=== PATIENT | male | born 1995 | race African-American/Black ===

== ENCOUNTER 2019-06-05 11:13 | Inpatient (IN) | payer MEDICAID, OTHER ==
[2019-06-05] VITALS (9 sets, daily range): BP systolic 148–191; BP diastolic 92–120
[~2019-06-05] VITALS: Ht 152.4 cm; Wt 67.9 kg
[2019-06-05] MEDS ORDERED: DEXTROSE (50%) 50ML SYRG IV PRN (11:30)
[2019-06-05] MEDS: SODIUM CHLORIDE 0.9% 1,000 ML IV SCH ×2 (11:58→13:35)
[2019-06-05] MEDS ORDERED: LORazepam 2MG/ML-1ML VIAL IV ONE (12:00)
[2019-06-05 12:24] LABS: Basophils # (auto) 0 uL; Basophils % (auto) 0.4 % (0.0-2.0); Eosinophils # (auto) 0 uL; Eosinophils % (auto) 0.1 % (0.0-7.0); Hemoglobin 13.3 g/dL (13.5-17.5); Lymphocytes # (auto) 1.2 uL; Lymphocytes % (auto) 12.4 % (10.0-50.0); Mean Corpuscular Hemoglobin 30.5 pg (28.0-32.0); Mean Corpuscular Hgb Conc. 32.4 g/dL (32.0-36.0); Mean Corpuscular Volume 94.1 fL (80.0-100.0); Monocytes # (auto) 0.3 uL; Monocytes % (auto) 2.8 % (0.0-12.0); Neutrophils # (auto) 8.4 uL; Neutrophils % (auto) 84.3 % (37.0-80.0); Nucleated Red Blood Cells % 0.1 %; Platelet Count (auto) 285 10^3/uL (140-450); Red Blood Cells 4.36 10^6/uL (4.5-5.90); Red Cell Distribution Width 14.3 % (11.8-14.3)
[2019-06-05 12:52] LABS: Calcium 9.8 mg/dL (8.5-10.1); Magnesium 2.8 mg/dL (1.6-2.6); Potassium 4.5 mmol/L (3.5-5.1)
[2019-06-05 13:00] LABS: BUN/Creatinine Ratio 14.9; Phosphorus 7.4 mg/dL (2.5-4.90)
[2019-06-05] MEDS: ACCU-CHEK COMFORT CURVE STRIP VI SCH ×8 (13:11→22:41)
[2019-06-05] MEDS ORDERED: NITROGLYCERIN 0.4 MG SL TAB SL PRN (13:15)
[2019-06-05] MEDS ORDERED: ONDANSETRON HCL 4 MG/2 ML VIAL IV PRN (13:15)
[2019-06-05] MEDS ORDERED: LABETALOL HCL 5 MG/ML 4ML SYRINGE IV PRN (13:15)
[2019-06-05] MEDS ORDERED: MORPHINE SULF INJ 2 MG/ML SYRINGE 1ML IV PRN ×2 (13:15)
[2019-06-05] MEDS: InsuLIN R (HUMAN) 100 UNITS in SODIUM CHL 0.9% 99 ML IV SCH (13:16)
[2019-06-05 13:33] LABS: Urine Bacteria FEW /hpf (None Seen); Urine Blood 1+ /uL (Negative); Urine Specific Gravity 1.017 (1.001-1.035); Urine WBC 1 /hpf (0 - 3)
[2019-06-05 13:52] LABS: Alcohol, Urine < 3.0 mg/dL (0-5); Amphetamine Screen, Urine NEGATIVE (NEGATIVE); Barbiturate Scree,Urine NEGATIVE (NEGATIVE); Benzodiazephine Screen, Urine NEGATIVE (NEGATIVE); Cannabinoid Screen, Urine POSITIVE (NEGATIVE); Cocaine Screen, Urine NEGATIVE (NEGATIVE); Opiate Scree,Urine NEGATIVE (NEGATIVE); Phencyclidine Screen, Urine NEGATIVE (NEGATIVE)
[2019-06-05] MEDS ORDERED: LABETALOL HCL 5 MG/ML ML 20ML VIAL IV PRN (14:00)
[2019-06-05] MEDS ORDERED: SODIUM CHLORIDE 0.9% 1,000 ML IV SCH ×2 (15:18→17:18)
[2019-06-05] MEDS ORDERED: ACETAMINOPHEN 650 MG RECT SUPP PR ONE ×3 (16:30→23:15)
[2019-06-05 18:17] LABS: BUN/Creatinine Ratio 10.8; Calcium 9.1 mg/dL (8.5-10.1); Potassium 3.3 mmol/L (3.5-5.1)
[2019-06-05] MEDS ORDERED: POTASSIUM CHLORIDE 40 MEQ, LIDOCAINE 1% (LOCAL ANESTH.) 4 ML in SODIUM CHL 0.9% 100 ML IV ONE (19:00)
[2019-06-05] MEDS: SOD CHL 0.45% 1,000 ML IV SCH (19:37)
[2019-06-05] MEDS ORDERED: LORazepam 2MG/ML-1ML VIAL ONE (20:19)
[2019-06-05] MEDS: FAMOTIDINE (10MG/ML) 2ML VL IV SCH (22:55)
[2019-06-06] VITALS (82 sets, daily range): BP systolic 110–162; BP diastolic 49–93
[2019-06-06] MEDS ORDERED: SODIUM CHLORIDE 0.9% 500 ML IV ONE
[2019-06-06] MEDS: ACCU-CHEK COMFORT CURVE STRIP VI SCH ×13 (00:13→19:52)
[2019-06-06 01:42] LABS: Lactic Acid w/Reflex 2.7 mmol/L (0.4-2.0)
[2019-06-06] MEDS: SOD CHL 0.45% 1,000 ML IV SCH ×3 (04:00→15:46)
[2019-06-06 04:32] LABS: Calcium 8.4 mg/dL (8.5-10.1); Magnesium 1.9 mg/dL (1.6-2.6); Phosphorus 2.1 mg/dL (2.5-4.90); Potassium 3.7 mmol/L (3.5-5.1)
[2019-06-06] MEDS: FAMOTIDINE (10MG/ML) 2ML VL IV SCH ×2 (10:09→21:31)
[2019-06-06] MEDS: levoFLOXacin 500MG 100 ML IV SCH ×2 (10:09)
[2019-06-06] MEDS: InsuLIN R (HUMAN) 100 UNITS in SODIUM CHL 0.9% 99 ML IV SCH (12:01)
[2019-06-06 14:38] LABS: BUN/Creatinine Ratio 14.3; Potassium 3.4 mmol/L (3.5-5.1)
[2019-06-06] MEDS ORDERED: PIPERACILLIN-TAZOB 3.375GM 100 ML IV ONE (14:45)
[2019-06-06] MEDS ORDERED: INSULIN LANTUS (GLARGINE) 1 /0.01ml (100units/ml) SC ONE ×2 (15:30→15:40)
[2019-06-06] MEDS ORDERED: DEXTROSE (50%) 50ML SYRG IV PRN (15:30)
[2019-06-06] MEDS: InsuLIN REG 1unit/0.01ml Soln (100units/ml) SC SCH ×2 (15:53→19:52)
[2019-06-06] MEDS: hydrALAZINE HCL 20 MG/ML VL IV PRN (15:55)
[2019-06-06] MEDS: METOPROLOL TARTRATE 1MG/1ML-5ML VIAL IV SCH (17:40)
[2019-06-06] MEDS: PIPERACILLIN-TAZOB 3.375GM 100 ML IV SCH (21:31)
[2019-06-06] MEDS: INSULIN LANTUS (GLARGINE) 1 /0.01ml (100units/ml) SC SCH (21:31)
[2019-06-06] MEDS ORDERED: INSULIN LANTUS (GLARGINE) 1 /0.01ml (100units/ml) SC SCH (22:00)
[2019-06-07] MEDS: ACCU-CHEK COMFORT CURVE STRIP VI SCH ×6 (00:11→22:00)
[2019-06-07] MEDS: METOPROLOL TARTRATE 1MG/1ML-5ML VIAL IV SCH ×2 (00:11→06:20)
[2019-06-07] MEDS: SOD CHL 0.45% 1,000 ML IV SCH (00:12)
[2019-06-07] MEDS: PIPERACILLIN-TAZOB 3.375GM 100 ML IV SCH ×4 (03:15→21:24)
[2019-06-07] MEDS: InsuLIN REG 1unit/0.01ml Soln (100units/ml) SC SCH ×6 (04:00→22:00)
[2019-06-07 05:37] VITALS: BP 147/97
[2019-06-07 09:00] VITALS: BP 160/98
[2019-06-07] MEDS: hydrALAZINE HCL 20 MG/ML VL IV PRN (09:18)
[2019-06-07] MEDS: FAMOTIDINE (10MG/ML) 2ML VL IV SCH (09:18)
[2019-06-07] MEDS ORDERED: DEXTROSE (50%) 50ML SYRG IV PRN (10:45)
[2019-06-07 10:52] LABS: Basophils # (auto) 0.1 uL; Basophils % (auto) 0.9 % (0.0-2.0); Eosinophils # (auto) 0.1 uL; Eosinophils % (auto) 0.5 % (0.0-7.0); Hematocrit 36.9 % (41.0-53.0); Hemoglobin 12.3 g/dL (13.5-17.5); Lymphocytes # (auto) 1.7 uL; Lymphocytes % (auto) 15.8 % (10.0-50.0); Mean Corpuscular Hemoglobin 30.7 pg (28.0-32.0); Mean Corpuscular Hgb Conc. 33.4 g/dL (32.0-36.0); Monocytes % (auto) 9.6 % (0.0-12.0); Neutrophils # (auto) 7.9 uL; Neutrophils % (auto) 73.2 % (37.0-80.0); Nucleated Red Blood Cells % 0.1 %; Platelet Count (auto) 249 10^3/uL (140-450); Red Blood Cells 4.01 10^6/uL (4.5-5.90); Red Cell Distribution Width 14.5 % (11.8-14.3); White Blood Cell 10.7 10^3/uL (4.4-10.8)
[2019-06-07] MEDS ORDERED: POM SC (10:53)
[2019-06-07] MEDS ORDERED: INSLANTI SC (10:53)
[2019-06-07] MEDS ORDERED: METOPROLOL TARTRATE 25 MG TAB PO ONE (11:00)
[2019-06-07 11:08] LABS: Albumin 2.4 g/dL (3.4-5.0); Calcium 8.4 mg/dL (8.5-10.1); Magnesium 1.8 mg/dL (1.6-2.6); Potassium 3.1 mmol/L (3.5-5.1)
[2019-06-07 11:14] LABS: BUN/Creatinine Ratio 8.2; Bilirubin, Total 1.3 mg/dL (0.2-1.0); Total Protein 6.5 g/dL (6.4-8.2)
[2019-06-07] MEDS ORDERED: LISINOPRIL 10 MG TAB PO ONE (11:30)
[2019-06-07] MEDS ORDERED: SOD CHL 0.45% 1,000 ML IV SCH (11:30)
[2019-06-07] MEDS ORDERED: POTASSIUM CHL 20 Meq TABLET PO ONE (12:00)
[2019-06-07] MEDS ORDERED: MAGNESIUM SULFATE 1GM/100ML 100 ML IV ONE (12:00)
[2019-06-07] MEDS ORDERED: SODIUM CHLORIDE 0.9% 1,000 ML IV SCH (12:00)
[2019-06-07 12:26] LABS: Urine Bacteria NONE SEEN /hpf (None Seen); Urine Blood 2+ /uL (Negative); Urine WBC 13 /hpf (0 - 3)
[2019-06-07 12:44] VITALS: BP 137/99
[2019-06-07 17:00] VITALS: BP 132/79
[2019-06-07 21:45] VITALS: BP 161/112
[2019-06-07] MEDS: METOPROLOL TARTRATE 25 MG TAB PO SCH (21:59)
[2019-06-07] MEDS: INSULIN LANTUS (GLARGINE) 1 /0.01ml (100units/ml) SC SCH (22:00)
[2019-06-08] MEDS: PIPERACILLIN-TAZOB 3.375GM 100 ML IV SCH ×5 (04:21→20:59)
[2019-06-08 05:32] VITALS: BP 128/73
[2019-06-08] MEDS ORDERED: LISI-275 PO (05:36)
[2019-06-08] MEDS ORDERED: CHOL20007 PO (05:36)
[2019-06-08] MEDS: ACCU-CHEK COMFORT CURVE STRIP VI SCH ×4 (06:24→22:02)
[2019-06-08] MEDS: InsuLIN REG 1unit/0.01ml Soln (100units/ml) SC SCH ×4 (06:25→22:08)
[2019-06-08 06:44] LABS: Albumin 2.1 g/dL (3.4-5.0); Magnesium 2.2 mg/dL (1.6-2.6)
[2019-06-08 06:57] LABS: Bilirubin, Total 0.6 mg/dL (0.2-1.0); Total Protein 5.9 g/dL (6.4-8.2)
[2019-06-08 07:00] LABS: Potassium 2.9 mmol/L (3.5-5.1)
[2019-06-08 07:13] LABS: Bilirubin, Direct 0.2 mg/dL (0-0.2)
[2019-06-08] MEDS ORDERED: POTASSIUM CHL 20 Meq TABLET PO ONE ×2 (08:00→10:15)
[2019-06-08 08:32] VITALS: BP 144/84
[2019-06-08] MEDS: METOPROLOL TARTRATE 25 MG TAB PO SCH ×2 (10:51→22:08)
[2019-06-08] MEDS: LISINOPRIL 10 MG TAB PO SCH (10:52)
[2019-06-08] MEDS: FAMOTIDINE 20 MG TAB PO SCH (10:52)
[2019-06-08 13:27] VITALS: BP 151/112
[2019-06-08 16:41] VITALS: BP 135/87
[2019-06-08 22:00] VITALS: BP 168/134
[2019-06-08] MEDS ORDERED: INSULIN LANTUS (GLARGINE) 1 /0.01ml (100units/ml) SC SCH (22:00)
[2019-06-09] MEDS: PIPERACILLIN-TAZOB 3.375GM 100 ML IV SCH ×2 (03:18→09:13)
[2019-06-09 05:00] VITALS: BP 190/119
[2019-06-09 05:30] LABS: Calcium 8.6 mg/dL (8.5-10.1); Magnesium 2.6 mg/dL (1.6-2.6); Potassium 3.2 mmol/L (3.5-5.1)
[2019-06-09] MEDS: ACCU-CHEK COMFORT CURVE STRIP VI SCH ×2 (05:50→11:30)
[2019-06-09] MEDS: InsuLIN REG 1unit/0.01ml Soln (100units/ml) SC SCH ×2 (05:50→11:30)
[2019-06-09 09:00] VITALS: BP 156/120
[2019-06-09] MEDS: LISINOPRIL 10 MG TAB PO SCH (09:13)
[2019-06-09] MEDS: FAMOTIDINE 20 MG TAB PO SCH (09:14)
[2019-06-09] MEDS: METOPROLOL TARTRATE 25 MG TAB PO SCH (09:14)
[2019-06-09] MEDS ORDERED: LISINOPRIL 20 MG TAB PO ONE (11:30)
[2019-06-09] MEDS ORDERED: METOPROLOL TARTRATE 25 MG TAB PO ONE (11:30)
[2019-06-09] MEDS ORDERED: levoFLOXacin 250 MG TAB PO ONE (12:30)
[2019-06-09] MEDS ORDERED: POTASSIUM CHL 20 Meq TABLET PO ONE (12:30)
[2019-06-09 13:00] VITALS: BP 200/125
[2019-06-09] MEDS: hydrALAZINE HCL 20 MG/ML VL IV PRN (13:17)
[2019-06-09 17:00] VITALS: BP 161/117
[2019-06-09] MEDS ORDERED: METOPROLOL TARTRATE 25 MG TAB PO SCH (22:00)
[2019-06-09] MEDS ORDERED: INSULIN LANTUS (GLARGINE) 1 /0.01ml (100units/ml) SC SCH ×2 (22:00)
[2019-06-10] MEDS ORDERED: LISINOPRIL 20 MG TAB PO SCH (10:00)
[2019-06-10] MEDS ORDERED: levoFLOXacin 250 MG TAB PO SCH (10:00)
== END 2019-06-09 17:00 | disposition left against medical advice (07) | DRG 199 ==
LOC: EDBD 11:13 → ER 11:13 → TELE 11:14 → ICU WEST 22:00 → TELE-CENTR 06-06 21:05
PROVIDERS: ADMIT Nurse Practitioner Acute Care; ATTEND Internal Medicine
DX: I16.0 Hypertensive urgency (principal); N17.0 Acute kidney failure with tubular necrosis; G93.41 Metabolic encephalopathy; E10.10 Type 1 diabetes mellitus with ketoacidosis without coma; R64 Cachexia; E10.649 Type 1 diabetes mellitus with hypoglycemia without coma; E10.22 Type 1 diabetes mellitus with diabetic chronic kidney disease; E86.0 Dehydration; N18.9 Chronic kidney disease, unspecified; E78.5 Hyperlipidemia, unspecified; F12.90 Cannabis use, unspecified, uncomplicated; I12.9 Hypertensive chronic kidney disease with stage 1 through stage 4 chronic kidney disease, or unspecified chronic kidney disease; E87.6 Hypokalemia; Z79.4 Long term (current) use of insulin; Z79.899 Other long term (current) drug therapy; Z68.29 Body mass index [BMI] 29.0-29.9, adult; Z91.14 Patient's other noncompliance with medication regimen; Z82.49 Family history of ischemic heart disease and other diseases of the circulatory system; Z83.3 Family history of diabetes mellitus
CPT/HCPCS: 36415; 36600; 51702; 70450; 71045; 71046; 80048; 80053; 80061; 80076; 80307; 81001; 82010; 82140; 82805; 82962; 83036; 83605; 83735; 83930; 84100; 84132; 84443; 85025; 87040; 87081; 87086; 87804; 93306; 96361; 96365; 96375; 96376; 99291; A4565; G0378; J1815; J1956; J2001; J2405; J2543; J3490